=== PATIENT | female | born 2000 | race Asian ===

== ENCOUNTER 2025-08-12 12:24 | Emergency (ER) | payer OTHER ==
[~2025-08-12] VITALS: Ht 152.4 cm; Wt 68.2 kg
[2025-08-12 12:44] LABS: COVID AG,FIA SOURCE NASAL SWAB
[2025-08-12 13:12] LABS: INFLUENZA TYPE A NEGATIVE FOR TYPE A (NEGATIVE); INFLUENZA TYPE B NEGATIVE FOR TYPE B (NEGATIVE)
[2025-08-12 13:13] LABS: SARS-COV2 (COVID) ANTIGEN,FIA Negative (Negative)
[2025-08-12 13:25] VITALS: BP 118/65; PULSE 65; RESP 16; TEMP 98.7; O2SAT 98
[2025-08-12] MEDS: OXYMETAZOLINE HCL 0.05% 15 ML NASAL SPRAY NASAL ONE (13:40)
== END 2025-08-12 13:41 | disposition home or self-care (01) ==
LOC: EMS 12:24
DX: J06.9 Acute upper respiratory infection, unspecified (principal); Z20.822 Contact with and (suspected) exposure to COVID-19
CPT/HCPCS: 71045; 87804; 99284